=== PATIENT | female | born 1940 | race Caucasian/White ===

== ENCOUNTER 2022-06-18 13:11 | Outpatient (CLI) | payer OTHER, SELFPAY ==
[2022-06-18 22:23] LABS: Chloride* 99 mmol/L (96-114); Potassium* 4.7 mmol/L (3.6-5.1); Sodium* 134 mmol/L (135-149)
[2022-06-18 22:26] LABS: Blood Urea Nitrogen* 17 mg/dL (7-30); Calcium* 9.4 mg/dL (8.4-10.6); Carbon Dioxide* 27 mmol/L (20-32); Creatinine* 0.9 mg/dL (0.5-1.5); Estimated Glomerular Filt Rate 64 ml/min; Glucose* 96 mg/dL (60-115)
== END 2022-06-18 13:12 | disposition home or self-care (01) ==
LOC: LKVREF 13:12
PROVIDERS: Visit Provider Emergency Medicine
DX: I10 Essential (primary) hypertension (principal); Z86.39 Personal history of other endocrine, nutritional and metabolic disease
CPT/HCPCS: 80048

== ENCOUNTER 2023-01-21 13:57 | Outpatient (CLI) | payer MEDICARE, SELFPAY | END 2023-01-21 13:58 | disposition home or self-care (01) | PROVIDERS: PCP Family Medicine; Visit Provider Emergency Medicine | DX: R42 Dizziness and giddiness (principal); R41.89 Other symptoms and signs involving cognitive functions and awareness; Z78.9 Other specified health status | CPT/HCPCS: 80053; 80061; 82607; 82746; 84425; 84443 ==

== ENCOUNTER 2023-02-11 14:45 | Outpatient (RCR) | payer MEDICARE, SELFPAY ==
--- NOTE | 2022-09-16 13:26 | PT.OPE ---
PT [facility] Eval PT [facility] Eval Start: 09/15/22 18:23 Freq: Status: Active Protocol: Document 09/15/22 18:23 BMS (Rec: 09/15/22 18:32 BMS [id number]) E-signed By Christiana Rae PT Physical Therapy Outpatient Evaluation Insurance Information Recert Due Date 12/09/22 Insurance Name Medicare B Provider Fax Number internal Medical Diagnosis BPPV Treating Diagnosis BPPV, 0H81.10 R 29.86 abnormal gait Referring MD Yared Kaufman MD Subjective Subjective dizziness started about 1-2 weeks ago, no injury or reason I know of. R ear also feel-s full all the time, went to urgent care and he told me to come here you could fix it. had the wax removed already. happens when I bend forward, roll over in bed, stand up Pain Comments no pain, back sore Current Work Status Retired Precautions Treatment Precautions/Contraindications HTN, smoker Therapy Limitations/Systems Review Vision,Hearing Objective Range of Motion cervical flex WNL, ext severe loss. L rotation = 50, R= 60. B shoulders WFL Palpation tightness cspine paraspinals, UT, levator, suboccipitals Balance & Gait wide base, uses wall for assist, slowed pattern with marked path deviation no gait aid initially. after session, mild path deviation. Posture head forward, inc thoracic kyphosis Other/Pertinent Objective nystagmus noted in B Mario hallpike testing positions. B horizontal canals (-) unable to stabilize VOR with inc head supeed. L smooth pursuits saccade end range. convergence impaired. Assessment Assessment/Impression Patient is 82 y.o. female referred to rehab services for vertigo of ~ 2 week duration. Symptoms reported as intermittent, lasting seconds to minutes, and may be position dependent with detailed questioning. She demo loss of cervical ROM, impaired VOR and VOR cancellation, and imbalance with gait. B [place] Hallpike + for posterior canalithiasis. Primary functional limitations include: changing positions, rolling in bed, bending forward, gait and balance, and difficulty focusing eyes due to 'off balance' feeling. She will beneift from skilled physical therapy to address canalith repositioning, gaze stab and balance/gait and functional weakness as noted in MD note. Plan of Care Rehabilitation Potential Good Physical Therapy Goals STG meet 2-3 weeks 1) Pt demo I HEP and self care/home mgmt techniques for dizziness adaptation, safety measures, and home safety improvements including picking up throw rugs, night light or commode, and use of gait aid as appropriate. 2) Pt report dizziness limiting activities < 2 episodes in 1 week period. LTG meet 4-6 weeks 1)Pt demo ability to roll over in bed and transition sit/ supine/sit without vertigo. 2) Pt demo ability to bend forward for reaching into freezer with no evidence of imbalance. 3) Pt demo appropriate gait pattern with no path deviation or wall surfing related to vertigo. Coordination/Communication With Referral Source Treatment Plan/Direct Interventions Gait Training,Manual Therapy, Neuromuscular Re-ed,Self-Care/ Home Management,Therapeutic Activities,Therapeutic Exercises Frequency/Duration 1x next week, then poss 1x/ week for balance and functional strength pending response to repositioning techniques. Patient Will Be Discharged From Therapy Completion of LTG(s),Skills Plateau,Independent w/HEP, Independently Progressing Evaluation Billing Untimed Code Treatment Minutes 35 Complexity Low Certification Information Initial Certification Date 09/15/22 Ending Certification Date 12/09/22 Provider Signature Shows Agreement With POC & Medical Necessity Physician Signature & Date Requested Please Sign/Date Here Physician Comment/Change : Physician NPI Number #
--- NOTE | 2023-01-29 12:35 | PT.OPDN ---
PT [facility] Outpatient Daily Note PT [facility] Daily Note Start: 09/15/22 18:23 Freq: Status: Active Protocol: Document 01/28/23 09:14 BMS (Rec: 01/28/23 09:17 BMS [id number]) E-signed By Christiana Rae, PT PT OP Daily Progress Note Visit Information Note Type Daily Note,Re-Evaluation Visit Number 1 Insurance Authorized Visits tbd Insurance Information Recert Due Date 02/27/23 Insurance Name Medicare B Insurance Information/Comments AARP? Medical Diagnosis BPPV Treating Diagnosis BPPV, 0H81.10 R 29.86 abnormal gait Referring MD Joyce Gordon MD Subjective Subjective Ear pressure R feels full but nothing in there. worse when lie on right no sinus infections, no headaches, no changes vision or hearing. not driving. when passenger I dont like the things going past window. had eyes checked a few months ago. supposed to be wearing hearing aids but I dont bc they are uncomfortable tingling in legs - not new, intermittent. when turn head neck cracks. Function: Looking up sometimes increases problem; Sometimes feel frustrated because of problem; Because of problem, sometimes afraid to leave your home without having someone accompany you; Turning over in bed sometimes increases problem; It is sometimes difficult to walk around house in the dark; Sometimes afraid to stay home alone; Problem sometimes places stress on relationships with family or friends; Walking in the aisle of a supermarket always increases problem; Always have difficulty getting into or out of bed due to problem; Always embarrassed in front of others because of problem; Quick movements of head always increase problem; Always avoid heights because of problem; It is always difficult to do strenuous housework or yard work; Walking down a sidewalk always increases problem; Bending over always increases problem; Pain Comments turning in bed turning head bending over and getting back up live in one level, lives with me. not walking or exercising not nec exercise. Precautions Treatment Precautions/Contraindications HTN, smoker Weight Bearing Status Full Weight Bearing Objective Other/Pertinent Objective +L Mario and horizontal roll test Cervical AROM: ext severe loss and pain, inc vertigo symptoms L rotatio 50, R rotation 60 w pain. Pain in combined lateral side bend and ext. R SB 10 deg L 20. Difficulty with over/ undershoot with target saccade vertical smooth pursuits with down swoop patient did not accurately track pen x 3. Functional Test Performed & Score Dizziness Handicap Inventory Summary P1. Does looking up increase your problem? Looking up sometimes increases problem (2 points) E2. Because of your problem, do you feel frustrated? Sometimes feel frustrated because of problem (2 points) F3. Because of your problem, do you restrict your travel for business or pleasure? Dizziness never restricts travel (0 points) P4. Does walking down the aisle of a supermarket increase your problem? Walking in the aisle of a supermarket always increases problem (4 points) F5. Because of your problem, do you have difficulty getting into or out of bed? Always have difficulty getting into or out of bed due to problem (4 points) F6. Does your problem significantly restrict your participation in social activities? Dizziness never restricts participation in social activities (0 points) F7. Because of your problem, do you have difficulty reading ? Dizziness never causes difficulty reading (0 points) F8. Does performing more ambitious activities increase your problem? Performing more ambitious activities never increases problem (0 points) E9. Are you afraid to leave your home without having someone accompany you? Because of problem, sometimes afraid to leave your home without having someone accompany you (2 points) E10. Because of your problem, have you been embarrassed in front of others? Always embarrassed in front of others because of problem (4 points) P11. Do quick movements of your head increase your problem? Quick movements of head always increase problem (4 points) F12. Because of your problem, do you avoid heights? Always avoid heights because of problem (4 points) P13. Does turning over in bed increase your problem? Turning over in bed sometimes increases problem (2 points) F14. Is it difficult for you to do strenuous housework or yard work? It is always difficult to do strenuous housework or yard work (4 points) E15. Are you afraid people may think that you are intoxicated? Never afraid people may think that you are intoxicated (0 points) F16. Because of your problem, is it difficult for you to go for a walk by yourself? It is never difficult to go for a walk by yourself (0 points) The tools listed on this website do not substitute for the informed opinion of a licensed physician or other health care provider. All scores should be re- checked. Please see our full Terms of Use. P17. Does walking down a sidewalk increase your problem ? Walking down a sidewalk always increases problem (4 points) E18. Because of your problem, is it difficult for you to concentrate? It is never difficult to concentrate (0 points) F19. Is it difficult for you to walk around your house in the dark? It is sometimes difficult to walk around house in the dark (2 points) E20. Because of your problem, are you afraid to stay home alone? Sometimes afraid to stay home alone (2 points) E21. Because of your problem, do you feel handicapped? Never feel handicapped (0 points) E22. Has your problem placed stress on your relationship with family/friends? Problem sometimes places stress on relationships with family or friends (2 points) E23. Because of your problem, are you depressed? Never depressed because of problem (0 points) F24. Does your problem interfere with your job or household responsibilities? Problem never interferes with job or household responsibilities (0 points) P25. Does bending over increase your problem? Bending over always increases problem (4 points) DHI Score: 46/100 Graphical DHI Score: Physical Score: 20/28 Emotional Score: 12/36 Functional Score: 14/36 Patient Instructed in Risks/Benefits Yes Billing Units Neuromuscular Reeducation Units 1 Re-Evaluation Units 1 Assessment/Impression Assessment/Impression Patient returns after 4 month absence during which she reports having felt better, then symptoms returned. Notices it most with bending forward, looking up, and with rapid turns. states she feels uneasy in the car with things going by the window. DHI 41. Presents today with tightness in neck miles to R and in subocciput with limited extension. She tests + for L horizontal and posterior canalithiasis and was treated with BBQ and ernestina. Reported feeling a bit more off after treatement but after rest and some water she stated she felt much better. plan to see again next 1-2 weeks to assess canalith positioning. also to address VOR deficits as well as balance and gait. She is appropriate for skilled physical therapy for vertigo, imblance, and chronic neck pain and stiffness that limits ability to achieve necessary positioning for canilith moving Plan of Care Physical Therapy Goals STG meet 2-3 weeks 1) Pt demo I HEP and self care/home mgmt techniques for dizziness adaptation, safety measures, and home safety improvements including picking up throw rugs, night light or commode, and use of gait aid as appropriate. 2) Pt report dizziness limiting activities < 2 episodes in 1 week period. LTG meet 4-6 weeks 1)Pt demo ability to roll over in bed and transition sit/ supine/sit without vertigo. 2) Pt demo ability to bend forward for reaching into freezer with no evidence of imbalance. 3) Pt demo appropriate gait pattern with no path deviation or wall surfing related to vertigo. Recertification Information Initial Certification Date 09/15/22 Recertification Start Date 01/28/23 Recertification Due Date 02/27/23 Reasons to Continue Skilled Therapy recurrent vertigo, neck pain limiting mobility, gaze stability deficits all lead to imbalance and heightened fall risk. Rehabilitation Potential good Continued Plan of Care and Interventions [employer] MACHINE OPERATOR, neuro yoli, ther ex, ther activity, MT, habituation and adaptation training Provider Signature Shows Agreement With POC & Medical Necessity Physician Comment/Change Comment or Changes Physician NPI Number # Discharge Note Initial Primary Functional Limitations Looking up sometimes increases problem; Sometimes feel frustrated because of problem; Because of problem, sometimes afraid to leave your home without having someone accompany you; Turning over in bed sometimes increases problem; It is sometimes difficult to walk around house in the dark; Sometimes afraid to stay home alone; Problem sometimes places stress on relationships with family or friends; Walking in the aisle of a supermarket always increases problem; Always have difficulty getting into or out of bed due to problem; Always embarrassed in front of others because of problem; Quick movements of head always increase problem; Always avoid heights because of problem; It is always difficult to do strenuous housework or yard work; Walking down a sidewalk always increases problem; Bending over always increases problem;
== END 2023-06-11 23:59 | disposition home or self-care (01) ==
PROVIDERS: PCP Family Medicine; Visit Provider Emergency Medicine
DX: H81.10 Benign paroxysmal vertigo, unspecified ear (principal); R26.9 Unspecified abnormalities of gait and mobility; Z51.89 Encounter for other specified aftercare
CPT/HCPCS: 97112; 97140; 97161; 97164

== ENCOUNTER 2023-03-04 12:34 | Outpatient (CLI) | payer MEDICARE, SELFPAY ==
--- NOTE | 2023-03-04 13:00 | CRLHL7_ITS ---
For Patients: As a result of the 21st Century Cures Act, medical imaging exams and procedure reports are released immediately into your electronic medical record. You may view this report before your referring provider. If you have questions, please contact your health care provider. INDICATION: Dizziness and giddiness. TECHNIQUE: MRI brain: Multiplanar multisequence MR imaging acquired prior to and following intravenous contrast. MRA head: Lows-cu-ubwbwm imaging acquired. MRA neck: Axpw-sr-grblya and postcontrast imaging acquired. COMPARISON: None. FINDINGS: MRI brain: Prominence of the ventricles and sulci compatible with mild diffuse cerebral volume loss. No mass effect or midline shift. Scattered and patchy FLAIR hyperintensities in the supratentorial white matter and hans, typical for moderate chronic microvascular ischemic changes. No intracranial hemorrhage or pathologic extra-axial fluid collection. No diffusion restriction to suggest acute infarction. No pathologic intracranial enhancement. The major arterial flow voids of the skullbase are preserved. Thinning of the ocular lenses. Small right maxillary sinus retention cyst. The mastoid air cells are clear. MRA head: The internal carotid, middle cerebral, and anterior cerebral arteries are patent. Mild narrowing of the left supraclinoid internal carotid artery and left middle cerebral artery mid M1 segment. The vertebral, basilar, and posterior cerebral arteries are patent. origin right posterior cerebral artery. Moderately severe right posterior cerebral artery P2 segment stenosis. No intracranial aneurysm or high-flow vascular malformation. MRA neck: The innominate and subclavian arteries are widely patent. The common carotid arteries are widely patent. Mild (less than 50 percent) proximal left internal carotid artery stenosis. The right internal carotid artery is widely patent. The left vertebral artery is dominant. The vertebral arteries are widely patent. IMPRESSION: MRI brain: 1. No acute intracranial abnormality. 2. Moderate chronic microvascular ischemic changes. 3. Mild diffuse cerebral volume loss. MRA head/neck: 1. Intracranial atherosclerotic disease including mild narrowing of the left supraclinoid internal carotid artery and left middle cerebral artery mid M1 segment. There is moderately severe right posterior cerebral artery P2 segment stenosis. 2. Mild (less than 50 percent) proximal left cervical internal carotid artery stenosis. Dictated by Umer Brooke MD @ 03/05/2023 7:53:16 AM (Electronically Signed)
== END 2023-03-04 12:35 | disposition home or self-care (01) ==
PROVIDERS: PCP Emergency Medicine; Visit Provider Emergency Medicine
DX: R41.89 Other symptoms and signs involving cognitive functions and awareness (principal); R42 Dizziness and giddiness
CPT/HCPCS: 70544; 70549; 70553; A9575

== ENCOUNTER 2024-05-09 13:08 | Outpatient (CLI) | payer MEDICARE, SELFPAY | END 2024-05-09 13:09 | disposition home or self-care (01) | PROVIDERS: PCP Emergency Medicine; Visit Provider Emergency Medicine | DX: Z00.00 Encounter for general adult medical examination without abnormal findings (principal); E78.5 Hyperlipidemia, unspecified; I10 Essential (primary) hypertension; M81.0 Age-related osteoporosis without current pathological fracture; R73.01 Impaired fasting glucose; Z78.9 Other specified health status | CPT/HCPCS: 80048; 80061; 82607 ==

== ENCOUNTER 2025-02-22 14:24 | Outpatient (CLI) | payer OTHER, SELFPAY | END 2025-02-22 14:25 | disposition home or self-care (01) | PROVIDERS: PCP Emergency Medicine; Visit Provider Emergency Medicine | DX: R60.0 Localized edema (principal) | CPT/HCPCS: 80053; 84443 ==

== ENCOUNTER 2025-03-30 13:00 | Outpatient (RCR) | payer OTHER, SELFPAY ==
--- NOTE | 2025-03-08 16:53 | PT.OPE ---
PT [facility]patient Eval PT [facility] Out[facility] Eval Start: 03/08/25 09:31 Freq: Status: Active Protocol: Document 03/08/25 16:52 CJT (Rec: 03/08/25 16:53 CJT [id number]) E-signed By Billy Kinsey PT Physical Therapy Outpatient Evaluation Insurance Information Recert Due Date 06/06/25 Insurance Name Medicare B Medical Diagnosis R26.89 - other abnormalities of gait and mobility Treating Diagnosis R26.89 - other abnormalities of gait and mobility Referring Orly Armstrong Subjective Preferred Name Daniela Subjective Pt presents for evaluation and treatment of R hip pain and poor balance. Pt had a fall in her home on 02/25/25 in which she melted to the floor. She did not lose consciousness or hit her head. Pt reports that she did fall on her buttocks and has had tailbone pain since. Pt rates this pain as 2/10. Pt notes that her tailbone hurts with extended periods of sitting as well as when she gets up out of bed. Pt would like to be able to move without shuffling. Pt reports she has been shuffling her feet since she broke her ankle in June. Pt reports about 2 falls in the past year. Pt reports she has concerns about her balance. Current Work Status Retired Precautions Therapy Limitations/ Not Limited Systems Review Objective Other/Pertinent R hip flexion: 5/5 Objective R hip abduction: 4/5 R hip adduction: 4/5 R knee flexion: 5/5 R knee extension: 4/5 R ankle DF: 5/5 L hip flexion: 5/5 L hip abduction: 4/5 L hip abduction: 4/5 L knee flexion: 4/5 L knee extension: 4/5 L ankle DF: 5/5 4-Stage Balance Test Stage I (NBOS): 10 seconds Stage II (in-step): 10 seconds Stage III (tandem): unable to perform (pt able to maintain wide tandem 10 seconds B) Stage IV (single leg): unable to perform mCTSIB: unable to complete stage IV Timed Up and Go (TUG): 25.3 seconds TUB Manual: 30.1 seconds 5 Times Fdn-jc-Gyycs: 20 seconds 30-Second Emi-kr-Qnnuo: 7 reps Functional Test ABC's: 39% self confidence Performed & Score Assessment Assessment/ Daniela is a very pleasant year old female who Impression presents to our clinic for evaluation and treatment of R hip pain and balance deficits. Pts hip pain is located at her coccyx which I was not able to properly evaluate today as pt is not able to lay prone. Pt demonstrates that she is a high fall risk with each of today's functional assessments and she is very aware that her balance is not good. Pt is motivated to work with PT to improve her balance and reduce risk of falls . The nature of the pts condition was explained and all questions were answered to the pts satisfaction. Skilled PT services are medically necessary to address deficits and return patient to highest level of function. Recommend physical therapy sessions 2/week for 6-8 weeks. Pt would prefer to attend PT sessions once weekly. Printout of HEP was given for I completion and pt gives verbal understanding of each exercise. Primary Functional Walking, transfers Limitations Plan of Care Rehabilitation Fair Potential Physical Therapy STG - To be completed in 4 weeks: Goals 1. Pt will improve 30 second Sit to Stand test score to 12 repetitions as indication of improved functional strength and balance to reduce risk of falls. 2. Pt will improve TUG score to 12 seconds or less as indication of improved functional strength and balance to reduce risk of falls. LTG - To be completed in 8 weeks: 1. Pt to be I with HEP so that they may I manage progression of symptoms. 2. Pt will demo ability to stand Tandem, with use of one hand, for at least 30 seconds as indication of improved static balance to reduce risk of falls. Treatment Plan/ Electrical Stimulation,Gait Training,Heat,Ice/Cold/ Direct Interventions Vasopneumatic,Joint Mobilization,Manual Therapy, Neuromuscular Re-ed,Self-Care/Home Management, Therapeutic Activities,Therapeutic Exercises Frequency/Duration 2/week for 6-8 weeks Patient Will Be Completion of LTG(s),Skills Plateau,Independent w/HEP, Discharged From Independently Progressing Therapy Evaluation Billing Untimed Code 40 Treatment Minutes PT Eval No Charge No Complexity Low Certification Information Initial 03/08/25 Certification Date Ending Certification 06/06/25 Date Provider Signature Yes Required Provider Signature POC & Medical Necessity Shows Agreement With Physician NPI Number Write NPI# Here Physician Comment/ : Change Physician Signature Please Sign/Date Here & Date Requested
--- NOTE | 2025-03-30 13:44 | PT.OPDN ---
PT [facility] Outpatient Daily Note PT [facility] Daily Note Start: 03/08/25 09:31 Freq: Status: Active Protocol: Document 03/30/25 12:53 CJT (Rec: 03/30/25 13:44 CJT [id number]) E-signed By Billy Kinsey, PT PT OP Daily Progress Note Visit Information Note Type Daily Note Visit Number 4 Physician Authorized eval and treat Visits Insurance Information Recert Due Date 06/06/25 Insurance Name Medicare B Medical Diagnosis R26.89 - other abnormalities of gait and mobility Treating Diagnosis R26.89 - other abnormalities of gait and mobility Referring Orly Armstrong Subjective Preferred Name Daniela Subjective Pt not ready for PT today. States that she does not feel she has made much progressed when asked. Pt states initially that she has been doing her exercises once a day, but when asked specifically which exercises she has been doing she says every other day. Home Exercise Home Exercise Access Code: [email or web address] Comments URL: [email or web address] Date: 03/08/2025 Prepared by: Billy Kinsey Exercises - Sit to Stand with Armchair - 2 x daily - 7 x weekly - 2 sets - 5 reps - Wide Tandem Stance with Eyes Open - 2 x daily - 7 x weekly - 2 sets - 20 seconds hold - Heel Toe Raises with Counter Support - 2 x daily - 7 x weekly - 2 sets - 10 reps Objective Other/Pertinent 4-Stage Balance Test Objective Stage I (NBOS): 10 seconds Stage II (in-step): 10 seconds Stage III (tandem): unable to perform (pt able to maintain wide tandem 10 seconds B) Stage IV (single leg): unable to perform Timed Up and Go (TUG): 25.3 seconds TUG Manual: 30.1 seconds 5 Times Bia-mq-Yopqq: 20 seconds 30-Second Eju-zj-Pfljp: 7 reps Functional Test ABC's: 39% self confidence Performed & Score Patient Instructed Yes in Risks/Benefits Therapeutic Exercise Therapeutic Exercise 39 Minutes (minutes) Therapeutic Exercise NuStep - 6 minutes, level 4 : To Restore Sit to stands with use of arms 2 x 10 Functional Status Sit to stands with arms crossed x 10 Tandem stance, 2 x 30 ea *use of hands as needed Side stepping with hands at rail x 25 ft ea Ambulation with SPC x 380 ft Treatment Minutes Timed Code Treatment 39 Minutes Total Treatment Time 39 Billing Units Therapeutic Exercise 3 Units Assessment/Impression Assessment/ Daniela has shown some progress with her participation Impression in PT but not to the extent that we would have preferred. She did show improvements in her functional strength with sit to stands and TUG testing, but her static balance remains unchanged. Pt was unable to give me a consistent answer as to how her exercises were going at home or how often she had been performing them . Daniela has been very reluctant to participate in physical therapy since her initial evaluation. Today I updated her HEP which now consists only of sit to stands with arms crossed. Pt may schedule additional appointments if she wishes to attend. Pt would like their chart to be held 30 days in case of relapse of symptoms and need for additional physical therapy services. If pt does not return to our clinic for additional treatment during that time, this note will serve as pts discharge note. Primary Functional Walking, transfers Limitations Plan of Care Physical Therapy STG - To be completed in 4 weeks: Goals 1. Pt will improve 30 second Sit to Stand test score to 12 repetitions as indication of improved functional strength and balance to reduce risk of falls. NOT MET 2. Pt will improve TUG score to 12 seconds or less as indication of improved functional strength and balance to reduce risk of falls. NOT MET LTG - To be completed in 8 weeks: 1. Pt to be I with HEP so that they may I manage progression of symptoms. NOT MET 2. Pt will demo ability to stand Tandem, with use of one hand, for at least 30 seconds as indication of improved static balance to reduce risk of falls. NOT MET
== END 2025-05-07 10:34 | disposition home or self-care (01) ==
PROVIDERS: PCP Emergency Medicine; Visit Provider Emergency Medicine
DX: R26.89 Other abnormalities of gait and mobility (principal); Z51.89 Encounter for other specified aftercare
CPT/HCPCS: 97110; 97112; 97140; 97161

== ENCOUNTER 2025-06-20 11:22 | Outpatient (CLI) | payer OTHER, SELFPAY | END 2025-06-20 11:23 | disposition home or self-care (01) | PROVIDERS: PCP Physician Assistant Medical; Visit Provider Physician Assistant Medical | DX: Z00.00 Encounter for general adult medical examination without abnormal findings (principal); Z78.9 Other specified health status; Z86.39 Personal history of other endocrine, nutritional and metabolic disease | CPT/HCPCS: 80053; 80061; 82306; 82397; 82607; 83970; 84443 ==